=== PATIENT | female | born 1975 | race Caucasian/White ===

== ENCOUNTER 2019-09-24 22:46 | Emergency (ER) | payer OTHER ==
[~2019-09-24] VITALS: Ht 167.6 cm; Wt 65.8 kg
--- NOTE | 2019-09-24 22:58 | NUR ---
Dr. Marquez at bedside for MSE.
--- NOTE | 2019-09-24 22:59 | NUR ---
Patient walked into ER with c/o painful urination and eye problem.
[2019-09-24] MEDS ORDERED: AZITHROMYCIN 250 MG TABLET PO ONE (23:15)
[2019-09-24] MEDS ORDERED: CEFTRIAXONE 500 MG VIAL IM ONE (23:15)
[2019-09-24] MEDS ORDERED: AZITHROMYCIN 250 MG TABLET ONE (23:23)
[2019-09-24] MEDS ORDERED: LIDOCAINE HCL 1% 20 ML VIAL ONE (23:23)
[2019-09-24] MEDS ORDERED: CEFTRIAXONE 500 MG VIAL ONE (23:23)
--- NOTE | 2019-09-24 23:34 | NUR ---
Patient discharged to home in stable condition. Written and verbal after care instructions given. Patient verbalizes understanding of instructions. Stressed follow up or return to ER for worsening s/s. patient left with stable gait.
--- NOTE | 2019-09-24 23:34 | NUR ---
Patient given written and verbal discharge instructions. Patient verbalizes understanding of instructions. Patient is ambulatory with steady gait. Refuses offer of long-term placement. Patient given list of available shelters in surrounding area.
[2019-09-24 23:35] VITALS: BP 135/79
== END 2019-09-24 23:36 | disposition home or self-care (01) ==
LOC: ER 22:48
DX: H00.015 Hordeolum externum left lower eyelid (principal); N34.2 Other urethritis; Z59.0 Homelessness
CPT/HCPCS: 96372; 99283; J0696; J3490; 84703; A4663; Q0144